=== PATIENT | female | born 1995 | race Caucasian/White ===

== ENCOUNTER 2016-04-10 16:16 | Emergency (ER) | payer BC, MEDICAID ==
[2016-04-10 18:16] VITALS: BP 106/66
[2016-04-10] MEDS ORDERED: Penicillin VK TAB* 250 MG PO ONE (18:48)
--- NOTE | 2016-04-10 19:00 | UC ---
Dental HPI - HPI Summary HPI Summary: Complains of left upper dental pain that started last night. Has tried Advil, Orajel and half of a Vicodin with no relief. Denies any fevers or sore throat. The tooth has been cracked and she has not been to the dentist because she no longer has dental insurance. - History of Current Complaint Chief Complaint: UCDentalProblem Stated Complaint: DENTAL COMPLAINT Time Seen by Provider: 04/10/16 18:39 Hx Obtained From: Patient Hx Last Menstrual Period: 03/28/16 Onset/Duration: Sudden Onset Severity: Moderate Aggravating: Chewing Alleviating: Nothing - Has tried Advil and Orajel with little to no relief - Allergies/Home Medications Allergies/Adverse Reactions: Allergies Allergy/AdvReac Type Severity Reaction Status Date / Time No Known Allergies Allergy Verified 04/10/16 18:07 Home Medications: Home Medications Albuterol HFA INHALER* [Ventolin HFA Inhaler*] 1 - 2 puff INH Q6H PRN 04/10/16 [ History Confirmed 04/10/16] Citalopram TAB* [Celexa TAB*] 60 mg PO DAILY 04/10/16 [History Confirmed ] Gabapentin CAP(*) [Neurontin 300 CAP(*)] 300 mg PO TID 04/10/16 [History Confirmed 04/10/16] HYDROcodone/ACETAMIN 5-325 MG* [[place] 5-325 TAB*] 1 tab PO BID PRN 04/10/16 [ History Confirmed 04/10/16] Nortriptyline CAP* [Nortriptylline CAP*] 10 mg PO BEDTIME 04/10/16 [History Confirmed 04/10/16] Ondansetron TAB* [Zofran Tab*] 4 mg PO BEDTIME 04/10/16 [History Confirmed 04/10] Pantoprazole TAB (NF) [Protonix TAB (NF)] 40 mg PO DAILY 04/10/16 [History Confirmed 04/10/16] Tizanidine HCl 4 mg PO BEDTIME 04/10/16 [History Confirmed 04/10/16] Topiramate [Topamax] 25 mg PO BID 04/10/16 [History Confirmed 04/10/16] PMH/Surg Hx/FS Hx/Imm Hx Respiratory History Of: Reports: Asthma - exercise induced - Surgical History Surgical History: Yes Surgery Procedure, Year, and Place: PFL bilateral knees, left shoulder scope, pec minor release, left arm bx, spinal cord stimulator - Social History Lives: With Family Alcohol Use: None Substance Use Type: None Smoking Status (MU): Never Smoked Tobacco Review of Systems Constitutional: Negative Skin: Negative Eyes: Negative ENT: Dental Pain Respiratory: Negative Cardiovascular: Negative Gastrointestinal: Negative Genitourinary: Negative Motor: Negative Neurovascular: Negative Musculoskeletal: Negative Neurological: Negative Psychological: Negative All Other Systems Reviewed And Are Negative: Yes Physical Exam Triage Information Reviewed: Yes Appearance: Well-Appearing, Pain Distress - grimacing frequently Vital Signs: Initial Vital Signs Temp 99.7 F 04/10/16 18:12 Pulse 92 04/10/16 18:12 Resp 16 04/10/16 18:12 BP 106/66 04/10/16 18:12 Pulse Ox 98 04/10/16 18:12 Vital Signs Reviewed: Yes Eyes: Positive: Conjunctiva Clear ENT Exam: Normal ENT: Positive: Normal ENT inspection, Pharynx normal, TMs normal Dental: Positive: Percussion Tenderness @ - #16, Gross Decay/Caries @ - #16, Dental Fracture @ - #16 Neck exam: Normal Neck: Positive: No Lymphadenopathy Respiratory Exam: Normal Respiratory: Positive: Chest non-tender, Lungs clear, Normal breath sounds, No respiratory distress, No accessory muscle use Cardiovascular Exam: Normal Cardiovascular: Positive: RRR, No Murmur Musculoskeletal Exam: Normal Neurological Exam: Normal Psychological Exam: Normal Skin Exam: Normal Dental Complaint Course/Dx - Differential Dx/Diagnosis Provider Diagnoses: toothache #16 Discharge - Discharge Plan Condition: Stable Disposition: HOME Prescriptions: Indomethacin CAP* [Indocin CAP*] 50 mg PO TID PRN #30 cap PRN Reason: Pain Penicillin VK TAB 500 MG(NF) [Penicillin VK 500 mg Tab(NF)] 500 mg PO QID #28 tab Patient Education Materials: Toothache (ED) Additional Instructions: See your dentist as soon as possible. Medication will not fix broken teeth.
== END 2016-04-10 19:10 | disposition home or self-care (01) ==
LOC: UCCORT 16:16
DX: K08.89 Other specified disorders of teeth and supporting structures (principal)
CPT/HCPCS: 99202; A9270-GY; G0463

== ENCOUNTER 2017-06-08 09:49 | Emergency (ER) | payer BC, MEDICAID ==
[2017-06-08] MEDS ORDERED: NS 0.9% 1000 ML* 1,000 ML IV ONE (11:07)
--- NOTE | 2017-06-08 11:07 | UC ---
Headache HPI - HPI Summary HPI Summary: Patient here with chief complaint of 24 hours of unresolving headache patient states it's her usual migraine headache on the left side of her head. Patient states this is not the worst headache of her life patient reports nausea no vomiting. 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 and when her headaches start like this sometimes related to a cyst - History Of Current Complaint Chief Complaint: UCHeadache Stated Complaint: MIGRAINE/NAUSEA Time Seen by Provider: 06/08/17 11:00 Hx Obtained From: Patient Hx Last Menstrual Period: 05/29/17 ?: No Onset/Duration: Sudden Onset, Lasting Days - 1 Onset Of Symptoms: Gradual Initially Headache Was: Moderate Pain Intensity: 6 Pain Scale Used: 0-10 Numeric Timing: Constant Character: Pressure, Typical Headache Location of Headache: Temporal, Parietal Aggravating Factor(s): Nothing Allevating Factor(s): Nothing Associated Signs And Symptoms: Positive: Nausea, Neck Stiffness - Left side is normal neck is stiff. 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 Respiratory History: Asthma GI/ History: Gastroesophageal Reflux Psychological History: Depression Other Psychological History: Chronic pain - Surgical History Surgical History: Yes Surgery Procedure, Year, and Place: PFL bilateral knees, left shoulder scope, pec minor release, left arm bx, spinal cord stimulator; 05/2016: first rib removal and scalenectomy - Family History Known Family History: Positive: None - Social History Occupation: Employed Full-time Lives: With Family Alcohol Use: Occasionally Substance Use Type: None Smoking Status (MU): Never Smoked Tobacco Review of Systems Constitutional: Negative Skin: Negative Eyes: Negative ENT: Negative Respiratory: Negative Cardiovascular: Negative Gastrointestinal: Negative, Nausea Genitourinary: Negative Motor: Negative Neurovascular: Negative Musculoskeletal: Negative Neurological: Headache Psychological: Negative Is Patient Immunocompromised?: No All Other Systems Reviewed And Are Negative: Yes Physical Exam Triage Information Reviewed: Yes Appearance: Well-Appearing, No Pain Distress, Well-Nourished Vital Signs: Initial Vital Signs Temp 98.3 F 06/08/17 10:34 Pulse 84 06/08/17 10:34 Resp 16 06/08/17 10:34 BP 116/68 06/08/17 10:34 Pulse Ox 99 06/08/17 10:34 Vital Signs Reviewed: Yes Eye Exam: Normal Eyes: Positive: Conjunctiva Clear, Other: - Perrla, eomi, no nystagmus ENT Exam: Normal ENT: Positive: Normal ENT inspection, Hearing grossly normal, Pharynx normal, TMs normal, Uvula midline. Negative: Nasal congestion, Nasal drainage, Tonsillar swelling, Tonsillar exudate, Trismus, Muffled voice, Hoarse voice, Dental tenderness, Sinus tenderness Dental Exam: Normal Neck exam: Normal Neck: Positive: Supple, Nontender, No Lymphadenopathy Respiratory Exam: Normal Respiratory: Positive: Chest non-tender, Lungs clear, Normal breath sounds, No respiratory distress, No accessory muscle use Cardiovascular Exam: Normal Cardiovascular: Positive: RRR, No Murmur, Pulses Normal, Brisk Capillary Refill Abdominal Exam: Normal Abdomen Description: Positive: Nontender, No Organomegaly, Soft Bowel Sounds: Positive: Present Musculoskeletal Exam: Normal - per patients usual left arm is always weaker than right Neurological Exam: Normal Neurological: Positive: Alert, Other: - rhomberg and pronator drift WNL, was able to drive to urgent care with out difficulty Psychological Exam: Normal Psychological: Positive: Normal Response To Family Skin Exam: Normal Diagnostics - Laboratory Diagnostic Studies Completed/Ordered: Ct scan No acute intercranial pathology Re-Evaluation - Re-Evaluation First Eval Change: Improved - feels better, lying on stretcher, on her phone, lights on no distress Headache Course/Dx - Course Course Of Treatment: Home rest increase fluids Tylenol ibuprofen could use naproxen for pain follow with PCP - Differential Dx/Diagnosis Provider Diagnoses: Acute headache Discharge - Sign-Out/Discharge Documenting (check all that apply): Discharge/Admit/Transfer - Discharge Plan Condition: Stable Disposition: HOME Prescriptions: Naproxen [Naprosyn 500 mg tab] 500 mg PO BID PRN #20 tablet PRN Reason: headache Patient Education Materials: Acute Headache (ED) Forms: *Work Release Referrals: [facility] [Outside] - If Needed - Billing Disposition and Condition Condition: STABLE Disposition: HOME
[2017-06-08] MEDS ORDERED: Ondansetron INJ* 2 MG/ML VIAL IV ONE (11:08)
[2017-06-08] MEDS ORDERED: Ketorolac INJ* 30 MG/ML 1 ML VIAL IV PUSH ONE (11:08)
--- NOTE | 2017-06-08 11:41 | RAD ---
Indication: Headache. Comparison: No relevant prior exams available on the [facility] [facility] [place]. Technique: Noncontrast CT vertex of skull through foramen magnum. Report: The sulci, ventricles, and basal cisterns are normal for age. Pillai matter white matter differentiation is preserved without evidence for edema. No intra or extra axial hemorrhage, mass, or fluid collection detected. Unremarkable visualized orbital contents. Unremarkable calvarium and skull base. Unremarkable scalp. The visualized paranasal sinuses and mastoid air spaces are clear. IMPRESSION: Negative unenhanced head CT.
[2017-06-08 12:44] VITALS: BP 122/76
== END 2017-06-08 12:44 | disposition home or self-care (01) ==
LOC: UCCORT 09:49
DX: R51 Headache (principal)
CPT/HCPCS: 70450; 96360; 96374; 96376; 99212; G0463; J1885; J2405